=== PATIENT | female | born 1990 | race Caucasian/White ===

== ENCOUNTER 2017-05-14 20:46 | Emergency (ER) | payer BC ==
--- NOTE | 2017-05-14 20:59 | PDOC ---
History of Present Illness - History of Present Illness Initial Comments: 05/14/17 21:46 26 y/o F with no PMH presents to the ED with bilateral pelvic cramps tonight. Patient [place] train [place] she experienced sudden onset of sharp twisting pelvic cramping pain. She states it lasted about 40 minutes before subsiding. She now states that the pain has returned and is now moving upward and inwards. She is currently sexually active, using protection. LMP was a week and a half ago. Her last bowel movement was this morning, which was normal. She denies nausea, vomiting, diarrhea, constipation. Denies fever, chills. PAST MEDICAL HISTORY: no significant history PAST SURGICAL HISTORY: no significant history FAMILY HISTORY: no pertinent history SOCIAL HISTORY: Pt lives with family and is employed. MEDICATIONS: reviewed ALLERGIES: As per nursing notes Review of Systems: General: No fevers or chills, no weakness, no weight loss HEENT: No change in vision. No sore throat,. No ear pain CardioVascular: No chest pain or shortness of breath Respiratory: No cough, or wheezing. Gastrointestinal: no nausea, vomiting, diarrhea or constipation, No rectal bleeding Genitourinary: (+) pelvic cramping. No dysuria, hematuria, or frequency Musculoskeletal: No joint or muscle pain or swelling Neurologic: No headache, vertigo, dizziness or loss of consciousness Psychiatric: No depression Skin: No rashes or easy bruising Endocrine: No increased thirst or abnormal weight change Allergic: No skin or latex allergy All other systems reviewed and normal Physical Exam: General: Well-nourished well-developed individual, no acute distress HEENT: Throat: Normal, tonsils normal, no erythema or exudate Neck: Supple, no meningeal signs, no lymphadenopathy Eyes: Pupils equal reactive and round, extraocular motion intact Chest: Nontender to palpation Cardiac: S1-S2 normal, regular rate and rhythm, no murmurs rubs or gallops Respiratory: Lungs clear to auscultation bilateral Abdomen: Soft, nondistended, normal bowel sounds, nontender to palpation diffusely Extremities: Warm, dry, no cyanosis, clubbing, or edema Skin: No rashes Neuro: Alert and oriented x3, nonfocal exam, grossly intact, normal gait Psych: Normal mood and affect <Radha Rhoades - Last Filed: 05/14/17 21:46> - General History Source: Patient Exam Limitations: No Limitations - History of Present Illness Initial Comments: Medical decision making This is a 26-year-old female who comes in complaining of intermittent severe crampy abdominal pain that is migratory in nature. Pain migrates from pelvis to mid abdomen to upper abdomen and it resolves in between. Patient said she had a normal bowel movement today and does not have a history of constipation. Patient denies any fevers, chills, nausea vomiting or diarrhea. Patient at the time of my exam was comfortable however she does is having intermittent crampy abdominal pain. Will give some antispasmodics and simethicone and reassess We'll obtain flat and upright of the abdomen and urinalysis 22:45 Reassessment patient continues to have intermittent severe crampy abdominal pain that is still migratory with resolution of pain between episodes. Patient urinalysis does show some blood I think most likely it is constipation given the fact that patient's flat and upright of her abdomen shows a large amount of stool with a large amount of gas but no dilated loops of bowel or air-fluid levels. However given the hematuria in her urine I will also obtain a CT and labs to rule out renal colic. 05/14/17 00:02 CT scan shows moderate amount of stool in colon Otherwise no acute pathology There is a questionable area of decreased attenuation of the aorta discussed with patient the importance of following this up with their primary care doctor However does not need to be addressed further tonight as patient's blood work is normal and there is no evidence of infection or inflammation at this time. Patient given copies of her CAT scan copies of her blood work and discharged Patient given mag citrate to drink post discharge <Jenny Keith I - Last Filed: 05/15/17 00:05> - General Chief Complaint: Pain, Acute Stated Complaint: PELVIC CRAMPING Time Seen by Provider: 05/14/17 20:57 Past History <Radha Rhoades - Last Filed: 05/14/17 21:46> <Jenny Keith I - Last Filed: 05/15/17 00:05> - Past Medical History Allergies/Adverse Reactions: Allergies Allergy/AdvReac Type Severity Reaction Status Date / Time No Known Allergies Allergy Unverified 05/14/17 21:36 Home Medications: Ambulatory Orders NK [No Known Home Medication] 05/14/17 *Physical Exam - Vital Signs Last Vital Signs Temp Pulse Resp BP Pulse Ox 98 F 63 16 102/81 100 05/14/17 20:46 05/14/17 20:46 05/14/17 20:46 05/14/17 20:46 05/14/17 20:46 <Radha Rhoades - Last Filed: 05/14/17 21:46> ED Treatment Course - Medications Given in the ED: ED Medications Discontinued Medications Generic Name Dose Route Start Last Admin Trade Name Mauricio PRN Reason Stop Dose Admin Simethicone 80 mg 05/14/17 21:41 05/14/17 21:41 Mylicon - PO 05/14/17 21:42 80 mg NOW ONE Administration <Radha Rhoades - Last Filed: 05/14/17 21:46> - LABORATORY CBC & Chemistry Diagram: 05/14/17 22:55 05/14/17 22:55 <Jenny Keith I - Last Filed: 05/15/17 00:05> *DC/Admit/Observation/Transfer - Attestations Scribe Attestion: 05/14/17 21:46 Documentation prepared by Radha Rhoades, acting as forensic medical examiner for Jenny Keith MD. <Radha Rhoades - Last Filed: 05/14/17 21:46> - Discharge Dispostion Admit: No <Jenny Keith I - Last Filed: 05/15/17 00:05> Diagnosis at time of Disposition: Constipation Qualifiers: Constipation type: unspecified constipation type Qualified Code(s): K59.00 - Constipation, unspecified - Discharge Dispostion Disposition: HOME Condition at time of disposition: Stable - Referrals Referrals: ON STAFF,NOT [Primary Care Provider] - - Patient Instructions Additional Instructions: Drink the mag citrate tomorrow morning. If you do not have a large bowel movement tomorrow get some MiraLAX or over-the- counter laxatives intake to help resolve the constipation. Take a copy of your CAT scan with you in follow-up with your primary care doctor. Return to the emergency department immediately with ANY new, persistent or worsening symptoms. Continue any medications as previously prescribed by your physician. You should follow up with your primary doctor as soon as possible regarding today's emergency department visit. . Please make sure your doctor reviews the results of your emergency evaluation. Thank you for coming to the Emergency Department today for your care. It was a pleasure to see you today. Please note that your evaluation is INCOMPLETE until you follow-up with your doctor. - Post Discharge Activity
[2017-05-14 21:10] VITALS: BP 102/81; PULSE 63; TEMP 98; BMI 25.0
[2017-05-14] MEDS ORDERED: SIMETHICONE 40 MG/0.6 ML BOTTLE PO STA (21:22)
[2017-05-14] MEDS ORDERED: HYOSCYAMINE SULFATE 0.125 MG *ODT PO ONE (21:22)
[2017-05-14] MEDS ORDERED: SIMETHICONE 80 MG TAB.CHEW (FP) ONE (21:39)
[2017-05-14] MEDS ORDERED: SIMETHICONE 80 MG TAB.CHEW (FP) PO ONE (21:41)
[2017-05-14 21:57] LABS: PH,URINE 6.5 (4.5-8); URINE APPEARANCE Clear; URINE BILIRUBIN Negative (NEGATIVE); URINE BLOOD Negative (NEGATIVE); URINE GLUCOSE (UA) Negative (NEGATIVE); URINE KETONE Negative (NEGATIVE); URINE NITRITE Negative (NEGATIVE); URINE PROTEIN Negative (NEGATIVE); URINE UROBILINOGEN 0.2 (0.2-1.0)
[2017-05-14 22:02] LABS: HCG,QUALITATIVE URINE NEGATIVE
[2017-05-14 22:05] LABS: URINE COLOR YELLOW; URINE LEUK ESTERASE TRACE (NEGATIVE)
[2017-05-14 22:34] LABS: URINE RBC 0-2 /hpf (0-3)
[2017-05-14 22:35] LABS: EPI CELLS FEW /HPF; URINE BACTERIA FEW /hpf (NEGATIVE)
[2017-05-14] MEDS ORDERED: KETOROLAC TROMETHAMINE 30 MG/1 ML VIAL IVPUSH ONE (22:42)
[2017-05-14] MEDS ORDERED: SODIUM CHLORIDE 1,000 ML IV ONE (22:42)
[2017-05-14] MEDS ORDERED: KETOROLAC TROMETHAMINE 30 MG/1 ML VIAL ONE (22:49)
[2017-05-14 23:13] LABS: EOS % 3.7 % (0-4.5); HEMATOCRIT 35.6 % (32.4-45.2); LYMPH % 40.1 % (8-40); MCH 29.8 pg (25.7-33.7); MCHC 33.7 g/dl (32.0-36.0); MEAN CELL VOLUME 88.5 fl (80-96); MEAN PLT VOLUME 8.5 fl (7.5-11.1); MONO % 5.5 % (3.8-10.2); NEUT % 49.7 % (42.8-82.8); PLATELET COUNT 270 K/MM3 (134-434); RBC 4.02 M/mm3 (3.60-5.2); RDW 13.9 % (11.6-15.6); WHITE BLOOD COUNT 5.7 K/mm3 (4.0-10.8)
[2017-05-14 23:32] LABS: ALBUMIN 4.4 g/dl (3.5-5.0); ALK PHOS 33 U/L (32-92); ANION GAP 5 (8-16); BILIRUBIN,TOTAL 0.4 mg/dl (0.2-1.0); BLOOD UREA NITROGEN 8 mg/dl (7-18); CALCIUM 9.2 mg/dl (8.4-10.2); CHLORIDE 103 mmol/L (98-107); CO2 25 mmol/L (22-28); CREATININE 0.6 mg/dl (0.6-1.3); GLUCOSE,RANDOM 97 mg/dl (74-106); POTASSIUM 4.1 mmol/L (3.5-5.1); SGOT/AST 27 U/L (10-42); SGPT/ALT 20 U/L (10-40); SODIUM 133 mmol/L (136-145); TOT PROT 7.1 g/dl (6.4-8.3)
[2017-05-15] MEDS ORDERED: MAGNESIUM CITRATE 300 ML BOTTLE PO ONE
[2017-05-15] MEDS ORDERED: MAGNESIUM CITRATE 300 ML BOTTLE ONE (00:04)
== END 2017-05-15 00:11 | disposition home or self-care (01) ==
LOC: FER 20:46
PROC: 3E0333Z Introduction of Anti-inflammatory into Peripheral Vein, Percutaneous Approach (ICD-10-PCS; principal; 2017-05-14)
PROC: 3E0337Z Introduction of Electrolytic and Water Balance Substance into Peripheral Vein, Percutaneous Approach (ICD-10-PCS; 2017-05-14)
DX: K59.00 Constipation, unspecified (principal)
CPT/HCPCS: 36415; 74019-TC-FY; 74176-TC; 80053; 81003; 81015; 84703; 85025; 99282-25